=== PATIENT | female | born 1975 | race Caucasian/White ===

== ENCOUNTER 2022-10-26 17:06 | Outpatient (CLI) | payer OTHER, SELFPAY | END 2022-10-26 17:07 | disposition home or self-care (01) | LOC: NFLDREF 11-05 11:25 | PROVIDERS: Visit Provider Physician Assistant | DX: N34.3 Urethral syndrome, unspecified (principal); N39.0 Urinary tract infection, site not specified | CPT/HCPCS: 87086 ==

== ENCOUNTER 2022-10-30 09:34 | Outpatient (CLI) | payer OTHER, SELFPAY | END 2022-10-30 09:35 | disposition home or self-care (01) | PROVIDERS: Visit Provider Physician Assistant | DX: N94.9 Unspecified condition associated with female genital organs and menstrual cycle (principal); R10.9 Unspecified abdominal pain; R30.0 Dysuria | CPT/HCPCS: 87086 ==